=== PATIENT | male | born 1995 | race Caucasian/White ===

== ENCOUNTER 2016-11-03 18:48 | Emergency (ER) | payer BC ==
[2016-11-03 18:56] VITALS: BP 116/74; PULSE 64; RESP 16; TEMP 98.2; O2SAT 98
[2016-11-03] MEDS ORDERED: OXYCODONE/APAP 5/325 TAB PO ONE (19:12)
--- NOTE | 2016-11-03 19:13 | EDPHY ---
H & P Stated Complaint: hit in face with baseball Source: Patient, Family Exam Limitations: No limitations - Personal History Current Tetanus/Diphtheria Vaccine: Yes Current Tetanus Diphtheria and Acellular Pertussis (TDAP): Yes Tetanus Vaccine Date: within 10 yrs - Medical/Surgical History Hx Asthma: No Hx Chronic Respiratory Disease: No Hx Diabetes: No Hx Cardiac Disease: No Hx Renal Disease: No Hx Cirrhosis: No Hx Alcoholism: No Hx HIV/AIDS: No Hx Splenectomy or Spleen Trauma: No Other PMH: Tonsilectomy - Social History Smoking Status: Never smoked HPI/ROS: CHIEF COMPLAINT: Struck in nose with baseball HISTORY OF PRESENT ILLNESS: Patient was playing catch with a baseball this evening when he was struck in the nose with a swell. This is after a forceful throat. No loss of conscious. No headache. His only complaint is pain over the nose. There is swelling there. No laceration. No pain over the teeth, maxilla or mandible. No difficulty opening or closing his mouth. Some swelling in runny nose. No epistaxis. No neck pain. No other associated complaints or modifying factors. REVIEW OF SYSTEMS: Ten systems reviewed and are negative unless otherwise noted in the HPI EXAMINATION General Appearance: Alert, no distress HEENT: Ecchymosis and edema of the nasal bone. EOMs intact. No Loomis sign. No raccoon eyes. No septal hematoma Cardiovascular: Pulses normal throughout. Brisk cap refill Neurological: A&O, sensory symmetric, strength symmetric Skin: Warm and dry, no rash Extremities: Nontender, no pedal edema Psychiatric: Mood and affect normal DIFFERENTIAL DIAGNOSES: Including but not limited to nasal fracture, nasal contusion, nasal bone dislocation, closed head injury MDM: 7:15 p.m. Blunt trauma to the nose from baseball. No LOC. No evidence of basilar skull fracture. No indication for CT scan of the head at this time. I have ordered a nasal bone x-ray and Percocet. He is in no acute distress. 7:30 p.m. X-rays as read by me reveal fractures of the nasal spine. 7:45 p.m. Nasal bone fracture without any septal hematoma. His airway is widely patent. He is discharged home with instructions to elevate the head of bed, apply eyes, do not blow his nose. He is to follow up with the ENT physician for definitive care. Return to ER precautions discussed. Discharged home stable condition. ED Precautions: Worsening pain. Erythema, edema, cyanosis, pallor, paresthesia or anesthesia. SUPERVISION: Evaluation (Pancho Rincon) Constitutional: Initial Vital Signs Temperature (C) 98.2 F 11/03/16 18:54 Heart Rate 64 11/03/16 18:54 Respiratory Rate 16 11/03/16 18:54 Blood Pressure 116/74 11/03/16 18:54 O2 Sat (%) 98 11/03/16 18:54 O2 Delivery Mode Room Air Allergies/Adverse Reactions: amoxicillin Allergy (Intermediate, Verified 10/15/15 14:29) Hives Home Medications: Medication Instructions Recorded Hydrocodone/APAP 5/325 [Weston 1 - 2 tab PO Q4H PRN #13 tab 11/03/16 5/325 (*)] Medical Decision Making - Diagnostics Imaging Results: Imaging Impressions Nasal Bones X-Ray 11/03/16 19:12 Impression: Nasal fractures. Other Provider: PHYSICIAN DOCUMENTATION: The patient was evaluated and managed by the Physician Intelligence Intern. My co- signature indicates that I have reviewed this chart and I agree with the findings and plan of care as documented. I am the secondary supervising physician. (Carloz Lr) - Data Points Medications Given: Discontinued Medications Oxycodone/Acetaminophen (Percocet 5/325) 1 tab PO EDNOW ONE Stop: 11/03/16 19:13 Last Admin: 11/03/16 19:21 Dose: 1 tab Departure - Departure Disposition: Home, Routine, Self-Care Clinical Impression: Nasal bone fracture Qualifiers: Encounter type: initial encounter Fracture type: closed Qualified Code(s): S02.2XXA - Fracture of nasal bones, initial encounter for closed fracture Condition: Good Instructions: Nasal Fracture (ED) Additional Instructions: 1. Rest and ice the injury often 2. Elevate head of bed 45 3. Do not blow your nose 4. Follow up with ENT for definitive care Referrals: UNKNOWN,PCP [Other] - As per Instructions Santy Carrasco MD [Medical Doctor] - As per Instructions Prescriptions: Hydrocodone/APAP 5/325 [Weston 5/325 (*)] 1 - 2 tab PO Q4H PRN #13 tab PRN Reason: Pain, Moderate
== END 2016-11-03 19:52 | disposition home or self-care (01) ==
DX: S02.2XXA Fracture of nasal bones, initial encounter for closed fracture (principal); W21.03XA Struck by baseball, initial encounter; Y99.8 Other external cause status; Y93.64 Activity, baseball